=== PATIENT | female | born 1960 | race Caucasian/White ===

== ENCOUNTER → 2017-11-01 | Outpatient (RCR) | payer OTHER | LOC: PT 10-07 08:58 | PROVIDERS: ATTEND Specialist | DX: S76.011A Strain of muscle, fascia and tendon of right hip, initial encounter (principal) ==

== ENCOUNTER 2017-11-03 10:09 | Outpatient (RCR) | payer OTHER | END 2017-12-02 | LOC: PT 10:09 | PROVIDERS: ATTEND Specialist | DX: S76.011D Strain of muscle, fascia and tendon of right hip, subsequent encounter (principal); M25.551 Pain in right hip; M25.651 Stiffness of right hip, not elsewhere classified; M54.5 Low back pain; M62.81 Muscle weakness (generalized) | CPT/HCPCS: 97139 ==